=== PATIENT | female | born 1995 | race Caucasian/White ===

== ENCOUNTER 2017-03-19 16:54 | Observation (INO) | payer OTHER ==
[~2017-03-19] VITALS: Ht 154.9 cm; Wt 132.4 kg
[2017-03-19] MEDS ORDERED: PREN-380 PO (18:18)
== END 2017-03-19 22:10 | disposition home or self-care (01) ==
LOC: MFCC 16:54
PROVIDERS: ADMIT Obstetrics & Gynecology; ATTEND Obstetrics & Gynecology
DX: O26.893 Other specified pregnancy related conditions, third trimester (principal); R10.9 Unspecified abdominal pain; Z3A.38 38 weeks gestation of pregnancy
CPT/HCPCS: 76805; G0378; Q0092; 59025; 81000

== ENCOUNTER 2017-03-26 13:55 | Observation (INO) | payer OTHER ==
[~2017-03-26] VITALS: Ht 153.7 cm; Wt 132.0 kg
[~2017-03-26 13:55] MED LIST: PREN-380 PO
[2017-03-26 15:12] VITALS: BP 102/58
--- NOTE | 2017-03-26 15:40 | NUR ---
PATIENT HAS BEEN SCREENED AND CATEGORIZED LOW NUTRITION RISK. PATIENT WILL BE SEEN WITHIN 7 DAYS OF ADMISSION. 04/01/[address]
== END 2017-03-26 19:35 | disposition home or self-care (01) ==
LOC: MLD 13:55
PROVIDERS: ADMIT Obstetrics & Gynecology; ATTEND Obstetrics & Gynecology
DX: Z34.93 Encounter for supervision of normal pregnancy, unspecified, third trimester (principal); Z3A.39 39 weeks gestation of pregnancy
CPT/HCPCS: 76815; 81000; G0378; Q0092

== ENCOUNTER 2017-03-27 12:34 | Inpatient (IN) | payer OTHER ==
[~2017-03-27] VITALS: Ht 153.7 cm; Wt 132.0 kg
[2017-03-27] MEDS ORDERED: OXYTOCIN 20 UNITS in LACTATED RINGERS 1,000 ML IV SCH (16:26)
[2017-03-27] MEDS ORDERED: MISOPROSTOL 25 MCG TAB VG SCH (16:30)
[2017-03-27] MEDS ORDERED: NALBUPHINE 10 MG/ML AMP IVP PRN (16:30)
[2017-03-27 17:58] LABS: BASOPHILS # (AUTO) 0.1 K/uL (0.00-0.22); EOSINOPHILS # (AUTO) 0.3 K/uL (0-0.4); EOSINOPHILS % (AUTO) 2.5 % (0.0-4.0); HEMATOCRIT 36.1 % (36-48); HEMOGLOBIN 11.9 g/dL (12.0-16.0); LYMPHOCYTES # (AUTO) 1.6 K/uL (2.5-16.5); LYMPHOCYTES % (AUTO) 11.8 % (20.5-51.1); MEAN CORPUSCULAR HEMOGLOBIN 29 pg (27-31); MEAN CORPUSCULAR HGB CONC 33 g/dL (33-37); MEAN CORPUSCULAR VOLUME 87 fL (80-94); MONOCYTES # (AUTO) 0.5 K/uL (0.8-1.0); MONOCYTES % (AUTO) 3.7 % (1.7-9.3); NEUTROPHILS # (AUTO) 10.8 K/uL (1.8-7.7); PLATELET COUNT (AUTO) 210 K/uL (140-450); RED BLOOD CELL COUNT(AUTO) 4.13 MIL/uL (4.20-5.40); RED CELL DISTRIBUTION WIDTH 15.4 % (11.6-13.7); WHITE BLOOD COUNT (AUTO) 13.3 K/uL (4.8-10.8)
[2017-03-27] MEDS ORDERED: MISOPROSTOL 25 MCG TAB ONE (18:13)
[2017-03-27 18:15] LABS: PROTHROMBIN TIME 9.9 secs (10.8-13.4)
[2017-03-27 18:16] LABS: ALBUMIN 2.4 g/dL (3.4-5.0); ANION GAP 11.9 (8-16); CREATININE 0.7 mg/dL (0.6-1.3); POTASSIUM 3.9 mmol/L (3.5-5.1); TOTAL BILIRUBIN 0.6 mg/dL (0.0-1.0)
[2017-03-27] MEDS ORDERED: AMPICILLIN 2,000 MG VIAL ONE ×2 (19:25→19:44)
[2017-03-27] MEDS ORDERED: AMPICILLIN 1,000 MG VIAL ONE (23:55)
[2017-03-28 01:56] VITALS: BP 121/69
[2017-03-28] MEDS ORDERED: AMPICILLIN 1,000 MG VIAL ONE ×5 (03:45→19:36)
[2017-03-28] MEDS: LACTATED RINGERS 1,000 ML IV SCH ×2 (04:00→06:17)
[2017-03-28] MEDS ORDERED: BUPIVACAINE 0.125%/NS PREMIX 250 ML ONE ×2 (04:03→14:37)
[2017-03-28] MEDS ORDERED: BUPIVACAINE 0.125%/NS PREMIX 250 ML EPI SCH (04:15)
--- NOTE | 2017-03-28 10:42 | NUR ---
PATIENT HAS BEEN SCREENED AND CATEGORIZED LOW NUTRITION RISK. PATIENT WILL BE SEEN WITHIN 7 DAYS OF ADMISSION. 04/03/17 DREW SILVA MBA, RD
[2017-03-28] MEDS ORDERED: fentaNYL 0.05 MG/ML VIAL ONE (15:09)
[2017-03-28] MEDS ORDERED: NALBUPHINE HYDROCHLORIDE 10 MG/ML VIAL ONE (15:31)
[2017-03-28] MEDS ORDERED: INFLUENZA VIRUS VACCINE QUAD 0.5 ML SYR IMVAC SCH (20:00)
[2017-03-28] MEDS ORDERED: OXYTOCIN 10 UNITS/ML VIAL ONE (21:34)
[2017-03-28] MEDS ORDERED: METHYLERGONOVINE 0.2 MG/ML AMP ONE (22:56)
[2017-03-28] MEDS ORDERED: CARBOPROST 250 MCG/ML AMP IM ONE ×2 (22:57→23:00)
[2017-03-28] MEDS ORDERED: OXYTOCIN 20 UNITS in LACTATED RINGERS 1,000 ML IV SCH (22:58)
[2017-03-28] MEDS ORDERED: SODIUM PHOSPHATE 118 ML ENEM RC PRN (23:00)
[2017-03-28] MEDS ORDERED: METHYLERGONOVINE 0.2 MG TAB PO PRN (23:00)
[2017-03-28] MEDS ORDERED: ACETAMINOPHEN 325 MG TAB PO PRN (23:00)
[2017-03-28] MEDS ORDERED: MEASLES, MUMPS, AND RUBELLA 1 VIAL SQVAC PRN (23:00)
[2017-03-28] MEDS ORDERED: DOCUSATE SODIUM 100 MG GELCAP PO PRN (23:00)
[2017-03-28] MEDS ORDERED: oxyCODONE/APAP 5/325 MG 1 TAB TAB PO PRN (23:00)
[2017-03-28] MEDS ORDERED: METHYLERGONOVINE 0.2 MG/ML AMP IM ONE (23:00)
[2017-03-29] MEDS ORDERED: MISOPROSTOL 100 MCG TAB RC SCH (00:30)
[2017-03-29] MEDS ORDERED: MISOPROSTOL 100 MCG TAB ONE (00:37)
[2017-03-29 07:54] LABS: HEMATOCRIT 30.9 % (36-48); HEMOGLOBIN 10.4 g/dL (12.0-16.0); MEAN CORPUSCULAR HEMOGLOBIN 30 pg (27-31); MEAN CORPUSCULAR HGB CONC 34 g/dL (33-37); MEAN CORPUSCULAR VOLUME 87 fL (80-94); PLATELET COUNT (AUTO) 198 K/uL (140-450); RED BLOOD CELL COUNT(AUTO) 3.54 MIL/uL (4.20-5.40); RED CELL DISTRIBUTION WIDTH 15.4 % (11.6-13.7); WHITE BLOOD COUNT (AUTO) 25.2 K/uL (4.8-10.8)
[2017-03-29 08:08] LABS: LYMPHOCYTES % (MANUAL) 2 % (20-46); MONOCYTES % (MANUAL) 3 % (5-12)
[2017-03-29 08:09] LABS: EOSINOPHILS % (MANUAL) 1 % (0-4)
== END 2017-03-30 16:44 | disposition home or self-care (01) | DRG 560 ==
LOC: MFCC 12:34
PROVIDERS: ADMIT Obstetrics & Gynecology; ATTEND Obstetrics & Gynecology
PROC: 10D07Z6 Extraction of Products of Conception, Vacuum, Via Natural or Artificial Opening (ICD-10-PCS; principal; 2017-03-28)
PROC: 3E0P7VZ Introduction of Hormone into Female Reproductive, Via Natural or Artificial Opening (ICD-10-PCS; 2017-03-28)
PROC: 0HQ9XZZ Repair Perineum Skin, External Approach (ICD-10-PCS; 2017-03-28)
PROC: 00HU33Z Insertion of Infusion Device into Spinal Canal, Percutaneous Approach (ICD-10-PCS; 2017-03-28)
PROC: 3E0R3BZ Introduction of Anesthetic Agent into Spinal Canal, Percutaneous Approach (ICD-10-PCS; 2017-03-28)
DX: O99.824 Streptococcus B carrier state complicating childbirth (principal); O41.03X0 Oligohydramnios, third trimester, not applicable or unspecified; Z68.43 Body mass index [BMI] 50.0-59.9, adult; O99.214 Obesity complicating childbirth; E66.01 Morbid (severe) obesity due to excess calories; O71.4 Obstetric high vaginal laceration alone; Z37.0 Single live birth; Z3A.39 39 weeks gestation of pregnancy; Z28.21 Immunization not carried out because of patient refusal; Z80.8 Family history of malignant neoplasm of other organs or systems; Z82.49 Family history of ischemic heart disease and other diseases of the circulatory system; Z83.3 Family history of diabetes mellitus
CPT/HCPCS: 36415; 51702; 59200; 80053; 85025; 85379; 85610; 85730; 86592; 86886; 86900; 86901; J0290; J2210; J2300; J2590; J3010; J3490; J7120